=== PATIENT | male | born 1995 | race Caucasian/White ===

== ENCOUNTER → 2017-09-04 | Outpatient (CLI) | payer BC ==
[~2017-09-04] MED LIST: CYCL-277 PO
== END ==
LOC: LAB 11:55
PROVIDERS: ATTEND Urology
DX: N39.0 Urinary tract infection, site not specified (principal)
CPT/HCPCS: 81001; 87088

== ENCOUNTER → 2017-09-15 | Outpatient (REF) | payer BC | LOC: ZZSENDIN 17:25 | PROVIDERS: ATTEND Urology | DX: N39.0 Urinary tract infection, site not specified (principal) | CPT/HCPCS: 87088 ==

== ENCOUNTER 2018-07-03 13:05 | Emergency (ER) | payer BC ==
--- NOTE | 2018-07-03 13:15 | ER Report ---
History and Physical Time Seen By MD: 13:15 Hx. of Stated Complaint: LEFT SIDED CHEST PAIN THAT RADIATES TO BACK AND LEFT ARM HPI/ROS CHIEF COMPLAINT: chest pain HISTORY OF PRESENT ILLNESS: Patient is a 23 year old male presenting to the ED for chest pain. Patient woke up this morning with pain over his heart. States it radiates to his back, and left arm. States his left arm is "fatigued". Feels like his arm is weaker. Patient states it hurts to take a deep breath in. Pain is with inhalation and exhalation and is right over his heart. Patient states he did go out last night and had 8 beers. Patient states he did not wake up with a hang-over. Patient states the pain is worse when he was driving to [place]. States that turned seemed to make the pain worse. Patient was able to eat [place] without any worsening of his pain. REVIEW OF SYSTEMS: Respiratory: No cough, no dyspnea. Cardiovascular: As noted above. Gastrointestinal: No vomiting, no abdominal pain. Musculoskeletal: No back pain. Allergies: Coded Allergies: shellfish derived (Verified Allergy, Severe, 07/03/18) Home Meds Active Scripts Hydrocodone Bit/Acetaminophen (HYDROCODON-ACETAMINOPHEN 5-325) 1 Each Tablet, 1 EACH PO Q4-6H PRN for PAIN, #8 TAB Prov:LOUIS CHESTER 07/03/18 Discontinued Scripts Cyclobenzaprine Hcl (CYCLOBENZAPRINE HCL) 5 Mg Tablet, 1 TAB PO TID PRN for MUSCLE SPASMS, #9 TAB 0 Refills Prov:CHRISTINA VIRK MD 07/13/17 Past Medical/Surgical History Patient does not have any past medical history or surgical history. Reviewed Nurses Notes: Yes Smoking Status: Never Smoker Constitutional Vital Sign - Last 24 Hours 07/03/18 07/03/18 07/03/18 07/03/18 13:08 13:30 14:00 14:30 Temp 99.3 Pulse 89 72 72 63 Resp 20 13 8 22 B/P (MAP) 157/103 130/79 (96) 135/90 (105) 118/66 (83) Pulse Ox 96 94 88 92 O2 Delivery Room Air 07/03/18 07/03/18 07/03/18 15:00 15:00 15:30 Pulse 64 64 63 Resp 10 10 B/P (MAP) 135/87 (103) 135/87 (103) 126/83 (97) Pulse Ox 91 91 Physical Exam General Appearance: The patient is alert, has no immediate need for airway protection and no current signs of toxicity. Respiratory: Chest is non tender, lungs are clear to auscultation. Cardiac: Regular rate and rhythm. No murmurs clicks or rubs noted. Gastrointestinal: Abdomen is soft and non tender, no masses, bowel sounds normal. Musculoskeletal: Extremities have full range of motion and are non tender. Strength is equal bilaterally. [DIFFERENTIAL DIAGNOSIS: After history and physical exam differential diagnosis was considered for pleurisy, GERD, myocardial infarction Medical Decision Making Data Points Result Diagram: 07/03/18 1332 07/03/18 1332 Laboratory Hematology Test 07/03/18 13:32 Red Blood Count 5.60 M/uL (4.00-5.60) Mean Corpuscular Volume 90.0 fL (80.0-96.0) Mean Corpuscular Hemoglobin 31.0 pg (26.0-33.0) Mean Corpuscular Hemoglobin Concent 34.5 g/dL (32.0-36.0) Red Cell Distribution Width 13.2 % (11.5-14.5) Mean Platelet Volume 7.5 fL (7.2-11.1) Neutrophils (%) (Auto) 76.0 % (39.4-72.5) Lymphocytes (%) (Auto) 15.4 % (17.6-49.6) Monocytes (%) (Auto) 7.4 % (4.1-12.4) Eosinophils (%) (Auto) 0.4 % (0.4-6.7) Basophils (%) (Auto) 0.8 % (0.3-1.4) Nucleated RBC Relative Count (auto) 0.1 /100WBC Neutrophils # (Auto) 8.7 K/uL (2.0-7.4) Lymphocytes # (Auto) 1.8 K/uL (1.3-3.6) Monocytes # (Auto) 0.8 K/uL (0.3-1.0) Eosinophils # (Auto) 0.0 K/uL (0.0-0.5) Basophils # (Auto) 0.1 K/uL (0.0-0.1) Nucleated RBC Absolute Count (auto) 0.01 K/uL D-Dimer Quantitative (PE/DVT) < 0.27 ug/ml (0-0.50) Sodium Level 139 mmol/L (137-145) Potassium Level 3.7 mmol/L (3.5-5.0) Chloride Level 108 mmol/L (98-107) Carbon Dioxide Level 23 mmol/L (22-30) Blood Urea Nitrogen 17 mg/dl (9-21) Creatinine 1.00 mg/dl (0.66-1.25) Glomerular Filtration Rate Calc > 60.0 Random Glucose 94 mg/dl (75-110) Calcium Level 9.3 mg/dl (8.4-10.2) Total Bilirubin 0.9 mg/dl (0.2-1.3) Aspartate Amino Transf (AST/SGOT) 29 U/L (0-35) Alanine Aminotransferase (ALT/SGPT) 29 U/L (0-56) Alkaline Phosphatase 45 U/L (0-126) Troponin I < 0.012 ng/ml Total Protein 6.2 g/dl (6.3-8.2) Albumin 4.0 g/dl (3.5-5.0) Chemistry Test 07/03/18 13:32 White Blood Count 11.4 k/uL (4.5-11.0) Red Blood Count 5.60 M/uL (4.00-5.60) Hemoglobin 17.4 g/dL (14.0-18.0) Hematocrit 50.4 % (42.0-52.0) Mean Corpuscular Volume 90.0 fL (80.0-96.0) Mean Corpuscular Hemoglobin 31.0 pg (26.0-33.0) Mean Corpuscular Hemoglobin Concent 34.5 g/dL (32.0-36.0) Red Cell Distribution Width 13.2 % (11.5-14.5) Platelet Count 258 K/uL (150-450) Mean Platelet Volume 7.5 fL (7.2-11.1) Neutrophils (%) (Auto) 76.0 % (39.4-72.5) Lymphocytes (%) (Auto) 15.4 % (17.6-49.6) Monocytes (%) (Auto) 7.4 % (4.1-12.4) Eosinophils (%) (Auto) 0.4 % (0.4-6.7) Basophils (%) (Auto) 0.8 % (0.3-1.4) Nucleated RBC Relative Count (auto) 0.1 /100WBC Neutrophils # (Auto) 8.7 K/uL (2.0-7.4) Lymphocytes # (Auto) 1.8 K/uL (1.3-3.6) Monocytes # (Auto) 0.8 K/uL (0.3-1.0) Eosinophils # (Auto) 0.0 K/uL (0.0-0.5) Basophils # (Auto) 0.1 K/uL (0.0-0.1) Nucleated RBC Absolute Count (auto) 0.01 K/uL D-Dimer Quantitative (PE/DVT) < 0.27 ug/ml (0-0.50) Glomerular Filtration Rate Calc > 60.0 Calcium Level 9.3 mg/dl (8.4-10.2) Total Bilirubin 0.9 mg/dl (0.2-1.3) Aspartate Amino Transf (AST/SGOT) 29 U/L (0-35) Alanine Aminotransferase (ALT/SGPT) 29 U/L (0-56) Alkaline Phosphatase 45 U/L (0-126) Troponin I < 0.012 ng/ml Total Protein 6.2 g/dl (6.3-8.2) Albumin 4.0 g/dl (3.5-5.0) Coagulation Test 07/03/18 13:32 D-Dimer Quantitative (PE/DVT) < 0.27 ug/ml EKG/Imaging EKG Interpretation 12 lead EKG: Rhythm: normal sinus rhythm with a ventricular rate of 70 bpm [place]: Rightward axis QRS: normal ST segments: normal Imaging 2 VIEWS CHEST INDICATION: Chest pain. COMPARISON: None available FINDINGS: Heart size within normal limits. Lungs are clear without focal infiltrate or consolidation. No effusion or pneumothorax. No acute bony finding. IMPRESSION: 1. No acute cardiopulmonary process. Report Dictated By: Pritesh Bustos MD at 07/03/2018 2:02 PM Report E-Signed By: Pritesh Bustos MD at 07/03/2018 2:03 PM ED Course/Re-evaluation ED Course Patient arrived at the ED and was placed in a room. History and physical were obtained. Differential diagnoses was considered. On examination lungs are clear, heart is regular, abdomen is soft nontender. Patient had no tenderness to palpation of the chest. IV was placed, CBC, CMP, troponin, EKG, d-dimer were done. Patient was given 324 mg Aspirin. Chest x-ray was completed. X-ray and labs were normal and this was discussed with the patient. As a result of do not believe this is related to a cardiac event. GI cocktail was ordered and given without relief. Ketorolac 15 mg IV was given without relief. With patient not having any relief from Toradol or the GI cocktail we will go ahead and discharge patient home with a prescription for hydrocodone/acetaminophen 5/325. Discharge instructions were given and patient was discharged to home. Patient is follow-up with [facility] in the next week. Patient verbalized understanding and agreement with plan. Decision to Disposition Date: Jul 03, 2018 Decision to Disposition Time: 16:31 Depart Departure Latest Vital Signs Vital Signs Date Time Temp Pulse Resp B/P (MAP) Pulse Ox O2 Delivery O2 Flow Rate FiO2 07/03/18 15:30 63 126/83 (97) 07/03/18 15:00 10 91 07/03/18 13:08 99.3 Room Air Impression: Primary Impression: Chest pain Condition: Improved Disposition: HOME OR SELF-CARE New Scripts Hydrocodone Bit/Acetaminophen (HYDROCODON-ACETAMINOPHEN 5-325) 1 Each Tablet 1 EACH PO Q4-6H PRN for PAIN, #8 TAB Prov: LOUIS CHESTER 07/03/18 Patient Instructions: Chest Pain (ED) Additional Instructions: There was no indication that this was related to your heart. I think that this is caused by muscles in the chest. Limit activity by pain. Take Ibuprofen as needed for pain in addition to the pain medication. Return to the ER if condition worsens. Follow up with [facility] in the next week. Problem Qualifiers Primary Impression: Chest pain Chest pain type: other chest pain Qualified Codes: R07.89 - Other chest pain LOUIS CHESTER Jul 03, 2018 13:15
[2018-07-03] MEDS ORDERED: ASPIRIN 81 MG CHEW PO ONE (13:30)
[2018-07-03 13:52] LABS: PLATELET COUNT, AUTOMATED 258 K/uL (150-450)
--- NOTE | 2018-07-03 14:07 | RADIOLOGY IMAGING REPORT ---
FACILITY: [facility] PATIENT NAME: Rain Fuchs : 1995 MR: [id number] V: [id number] EXAM DATE: ORDERING PHYSICIAN: LOUIS CHESTER TECHNOLOGIST: Location: [facility] Patient: Rain Fuchs : 1995 Visit/Account:[id number] Date of Sevice: 07/03/2018 2 VIEWS CHEST INDICATION: Chest pain. COMPARISON: None available FINDINGS: Heart size within normal limits. Lungs are clear without focal infiltrate or consolidation. No effusion or pneumothorax. No acute bony finding. IMPRESSION: 1. No acute cardiopulmonary process. Report Dictated By: Pritesh Bustos MD at 07/03/2018 2:02 PM Report E-Signed By: Pritesh Bustos MD at 07/03/2018 2:03 PM WSN:[id number]
[2018-07-03] MEDS ORDERED: MAG HYD/AL HYD/SIMETH 30ML UDC PO ONE (15:00)
[2018-07-03] MEDS ORDERED: LIDOCAINE 2% VISC SLN 15ML UDC PO ONE (15:00)
[2018-07-03 15:30] VITALS: BP 126/83
[2018-07-03] MEDS ORDERED: KETOROLAC 15 MG/ML VIAL IVP ONE (15:40)
--- NOTE | 2018-07-03 16:23 | EKG ---
FACILITY: [facility] PATIENT NAME: DILLAN MORALES : [id number] MR: [id number] V: [id number] EXAM DATE: ORDERING PHYSICIAN: LOUIS CHESTER TECHNOLOGIST: TOM Test Reason : CHEST PAIN Blood Pressure : / mmHG Vent. Rate : 070 BPM Atrial Rate : 070 BPM P-R Int : 142 ms QRS Dur : 102 ms QT Int : 360 ms P-R-T Axes : 081 090 065 degrees QTc Int : 388 ms Sinus rhythm Rightward axis Nonspecific ST findings inferior leads Borderline ECG No previous ECGs available Confirmed by KAREN ALLISON ([id number] on 07/04/2018 6:04:05 AM Referred By: LOUIS Confirmed By:KAREN ALLISON
[2018-07-03] MEDS ORDERED: HYDR-385 PO (16:46)
== END 2018-07-03 16:46 | disposition home or self-care (01) ==
LOC: ER 13:08
DX: R07.89 Other chest pain (principal)
CPT/HCPCS: 84484; 85025; 85379; 93005; 96374; 99284; J1885; 82040; 82247; 82310; 82374; 82435; 82565; 82947; 84075; 84132; 84155; 84295; 84450; 84460; 84520